=== PATIENT | male | born 1955 | race Caucasian/White ===

== ENCOUNTER 2023-06-06 10:33 | Outpatient (RCR) | payer MEDICARE, OTHER, SELFPAY | END 2023-06-06 11:01 | disposition home or self-care (01) | LOC: RPT 10:33 | PROVIDERS: ATTENDING PHYSICIAN Orthopaedic Surgery; FAMILY PHYSICIAN Internal Medicine | DX: Z47.1 Aftercare following joint replacement surgery (principal); Z96.652 Presence of left artificial knee joint; Z73.6 Limitation of activities due to disability | CPT/HCPCS: 97010; 97110; 97112 ==

== ENCOUNTER → 2025-03-16 07:43 | Outpatient (REF) | payer MEDICARE, OTHER, SELFPAY | LOC: RAD 07:43 | PROVIDERS: ATTENDING PHYSICIAN Internal Medicine | DX: M79.672 Pain in left foot (principal) | CPT/HCPCS: 73620 ==

== ENCOUNTER 2025-03-30 06:21 | Day surgery (SDC) | payer MEDICARE, OTHER, SELFPAY ==
[2025-03-30 07:42] LABS: Glucose - Point of Care 157 mg/dl (70-99)
== END 2025-03-30 09:41 | disposition home or self-care (01) ==
LOC: GI 06:21
PROVIDERS: ATTENDING PHYSICIAN Internal Medicine
DX: Z12.11 Encounter for screening for malignant neoplasm of colon (principal); K64.9 Unspecified hemorrhoids; K57.30 Diverticulosis of large intestine without perforation or abscess without bleeding; D12.0 Benign neoplasm of cecum; K63.5 Polyp of colon; Z86.0101 Personal history of adenomatous and serrated colon polyps
CPT/HCPCS: 45385; 45380; 82962; 88305